=== PATIENT | male | born 1990 | race Caucasian/White ===

== ENCOUNTER → 2020-12-11 | Outpatient (CLI) | payer SELFPAY ==
[~2020-12-11] MED LIST: AMOX500C2 PO; DICY20TA10; HYDR-4226 PO; NAPR-1071 PO; ONDA8TAB13; PREG100C
--- NOTE | 2020-12-11 17:42 | Diagnostic Imaging Report ---
PROCEDURE: CT abdomen and pelvis without contrast. TECHNIQUE: Multiple contiguous axial images were obtained through the abdomen and pelvis without the use of intravenous contrast. Auto Exposure Controls were utilized during the CT exam to meet ALARA standards for radiation dose reduction. INDICATION: Left lower quadrant abdominal pain for 3 days. History of diverticulitis. COMPARISON: None. FINDINGS: The heart is unremarkable. The included lung bases are clear. A nonobstructing calculus is seen in the inferior pole of the right kidney measuring 4 mm. No obstructing calculi or hydronephrosis. The urinary bladder is nondistended. No bladder calculus is seen. The liver, spleen, pancreas and adrenal glands have a normal appearance. There is no pathologically enlarged mesenteric or retroperitoneal adenopathy. Diverticuli are visualized in the descending and sigmoid colon. Pericolonic inflammatory changes are seen along the descending and sigmoid colon. No evidence of abscess formation or free air. Trace free fluid is seen in the left paracolic gutter. Normal appendix is seen in the right lower quadrant. No evidence of bowel obstruction. No acute osseous abnormality. There is no free air, loculated collection or adenopathy in the pelvis. IMPRESSION: 1. Acute uncomplicated diverticulitis involving the descending and sigmoid colon. 2. Nonobstructing calculus in the inferior pole of the right kidney measuring 4 mm. Dictated by: Dictated on workstation # [id number]
== END ==
LOC: RAD FS 17:11
PROVIDERS: ATTEND Nurse Practitioner Family
DX: K57.32 Diverticulitis of large intestine without perforation or abscess without bleeding (principal); N20.0 Calculus of kidney
CPT/HCPCS: 74176

== ENCOUNTER → 2020-12-11 | Outpatient (CLI) | payer SELFPAY ==
--- NOTE | 2020-12-11 10:37 | Diagnostic Imaging Report ---
EXAMINATION: Abdomen at 10:07 a.m. INDICATION: Abdominal pain. There are no prior studies available for comparison. Two supine views were obtained. There is gas in both the large and small bowel in a nonspecific fashion. There is no evidence for bowel obstruction. There is no mass or organomegaly appreciated. However there is a 4 mL calcification overlying the inferior pole of the right kidney. I suspect that this is an intrarenal calculus. There is also a small 3 mm calculus near the ureterovesical junction on the left. This could represent a phlebolith. The possibility that this is an obstructive calculus within the left collecting system should also be considered. If further imaging is desired, then CT of the abdomen and pelvis would be recommended. The osseous structures are intact. IMPRESSION: 1. The bowel gas pattern is nonspecific. There is no evidence for bowel obstruction. 2. The calcific density overlying the right kidney may well be intrarenal. The calcific density low in the pelvis near the ureterovesical junction on the left is of uncertain etiology. Considerations and recommendations as above. Dictated by: Dictated on workstation # [id number]
== END ==
LOC: LAB FS 09:59
PROVIDERS: ATTEND Nurse Practitioner Family
DX: K57.30 Diverticulosis of large intestine without perforation or abscess without bleeding (principal); N28.89 Other specified disorders of kidney and ureter; N20.1 Calculus of ureter
CPT/HCPCS: 74018

== ENCOUNTER 2021-04-23 10:40 | Emergency (ER) | payer SELFPAY ==
[~2021-04-23] VITALS: Ht 152 cm; Wt 87.0 kg
[2021-04-23 10:45] VITALS: BP 157/102
--- NOTE | 2021-04-23 10:53 | ED GI ---
General Chief Complaint: - Urinary Stated Complaint: RT ABD PAIN History of Present Illness Date Seen by Provider: Apr 23, 2021 Time Seen by Provider: 10:49 Initial Comments 30-year-old presents with sudden onset right flank and abdominal pain 30 minutes prior to arrival today. Associated nausea vomiting. History of kidney stones. Also blood in his urine. No recent illness, fever or chills. Allergies and Home Medications Allergies Coded Allergies: Penicillins (Verified Allergy, Unknown, 09/08/16) Home Medications Amoxicillin 500 Mg Capsule, 500 MG PO TID Prescribed by: HELDER HOLDEN on 09/08/16 165 Cephalexin 500 Mg Tablet, 500 MG PO TID Prescribed by: ROSALINO PRADO on 04/23/21 1141 Hydrocodone/Acetaminophen 1 Each Tablet, 1 EACH PO Q4H PRN for PAIN Prescribed by: HELDER HOLDEN on 09/08/161657 Naproxen 500 Mg Tablet, 500 MG PO BID PRN for PAIN Prescribed by: HELDER HOLDEN on 09/08/161657 Tamsulosin HCl 0.4 Mg Cap, 0.4 MG PO DAILY Prescribed by: ROSALINO PRADO on 04/23/21 1141 Patient Home Medication List Home Medication List Reviewed: Yes Review of Systems Review of Systems Constitutional: No fever, No malaise, No weakness Gastrointestinal: Abdominal Pain (RLLQ); Denies Constipated, Denies Diarrhea; Nausea; Denies Vomiting Genitourinary: Denies Burning, Denies Discharge, Denies Drainage, Denies Frequency; Flank Pain, Hematuria, Pain Musculoskeletal: No back pain, No joint pain, No muscle pain Skin: No change in color, No rash Past Ytqxkkt-Vjgygd-Iujjdw Hx Past Med/Social Hx: Reviewed Nursing Past Med/Soc Hx Patient Social History Recent Hopitalizations: No Past Medical History Irritable Bowel Depression Physical Exam Vital Signs Vital Signs - First Documented 04/23/21 10:45 Temp 36.3 Pulse 62 Resp 18 B/P (MAP) 157/102 (120) Pulse Ox 99 O2 Delivery Room Air Capillary Refill : Height/Weight/BMI Height: 5'4" Weight: 180lbs. oz. 81.355266mk; BMI Method:Stated General Appearance: WD/WN, no apparent distress Respiratory: chest non-tender, lungs clear Cardiovascular: regular rate, rhythm, no JVD Gastrointestinal: non tender, soft, no organomegaly, no pulsatile mass; No guarding, No rebound; tenderness (RLQ and R flank) Back: normal inspection, no CVA tenderness Progress/Results/Core Measures Results/Orders Lab Results Laboratory Tests Test 04/23/21 10:53 Range/Units White Blood Count 8.6 4.3-11.0 10^3/uL Red Blood Count 5.23 4.35-5.85 10^6/uL Hemoglobin 16.3 13.3-17.7 G/DL Hematocrit 47 40-54 % Mean Corpuscular Volume 91 80-99 FL Mean Corpuscular Hemoglobin 31 25-34 PG Mean Corpuscular Hemoglobin Concent 34 32-36 G/DL Red Cell Distribution Width 12.7 10.0-14.5 % Platelet Count 239 130-400 10^3/uL Mean Platelet Volume 10.7 H 7.4-10.4 FL Immature Granulocyte % (Auto) 0 % Neutrophils (%) (Auto) 57 42-75 % Lymphocytes (%) (Auto) 32 12-44 % Monocytes (%) (Auto) 7 0-12 % Eosinophils (%) (Auto) 4 0-10 % Basophils (%) (Auto) 0 0-10 % Neutrophils # (Auto) 4.9 1.8-7.8 X 10^3 Lymphocytes # (Auto) 2.8 1.0-4.0 X 10^3 Monocytes # (Auto) 0.6 0.0-1.0 X 10^3 Eosinophils # (Auto) 0.3 0.0-0.3 10^3/uL Basophils # (Auto) 0.0 0.0-0.1 10^3/uL Immature Granulocyte # (Auto) 0.0 0.0-0.1 10^3/uL Sodium Level 139 135-145 MMOL/L Potassium Level 3.9 3.6-5.0 MMOL/L Chloride Level 106 98-107 MMOL/L Carbon Dioxide Level 23 21-32 MMOL/L Anion Gap 10 5-14 MMOL/L Blood Urea Nitrogen 12 7-18 MG/DL Creatinine 0.94 0.60-1.30 MG/DL Estimat Glomerular Filtration Rate > 60 BUN/Creatinine Ratio 13 Glucose Level 104 70-105 MG/DL Calcium Level 9.7 8.5-10.1 MG/DL Corrected Calcium 8.5-10.1 MG/DL Total Bilirubin 0.4 0.1-1.0 MG/DL Aspartate Amino Transf (AST/SGOT) 17 5-34 U/L Alanine Aminotransferase (ALT/SGPT) 13 0-55 U/L Alkaline Phosphatase 73 40-136 U/L Total Protein 7.9 6.4-8.2 GM/DL Albumin 5.0 H 3.2-4.5 GM/DL My Orders Orders - ROSALINO PRADO DO Cbc With Automated Diff (04/23/21 10:53) Comprehensive Metabolic Panel (04/23/21 10:53) Ed Iv/Invasive Line Start (04/23/21 10:53) Ns Iv 1000 Ml (Sodium Chloride 0.9%) (04/23/21 11:00) Ketorolac Injection (Toradol Injection) (04/23/21 11:00) Ct Abdomen/Pelvis Wo (04/23/21 11:00) Ondansetron Injection (Zofran Injectio (04/23/21 11:15) Ondansetron Injection (Zofran Injectio (04/23/21 11:15) Medications Given in ED Current Medications Medications Dose Ordered Sig/Miracle Route Start Time Stop Time Status Last Admin Dose Admin Ketorolac Tromethamine 30 mg ONCE ONCE IVP 04/23/21 11:00 04/23/21 11:01 DC 04/23/21 10:59 30 MG Ondansetron HCl 4 mg ONCE ONCE IVP 04/23/21 11:15 04/23/21 11:16 DC 04/23/21 11:10 4 MG Vital Signs/I&O 04/23/21 10:45 Temp 36.3 Pulse 62 Resp 18 B/P (MAP) 157/102 (120) Pulse Ox 99 O2 Delivery Room Air Progress Progress Note : Progress Note patient did not want any narcotic pain medication, although it was offered. Diagnostic Imaging Comments MPRESSION: 1. A 4 mm proximal right ureteric calculus producing moderate hydroureteronephrosis. There is a tiny nonobstructing left renal calculus. 2. Uncomplicated diverticulosis. Dictated on workstation # [id number] Dict: 04/23/21 1114 Trans: 04/23/21 1120 [facility] [id number] Interpreted by: AKASH LANE MD Electronically signed by: Departure Impression Primary Impression: Ureterolithiasis Disposition: HOME, SELF-CARE Condition: Improved Departure-Patient Inst. Decision time for Depature: 11:39 Referrals: SUNIL CHUN APRN (PCP) Primary Care Physician [facility] [place] Primary Care Physician REI SHAH MD Patient Instructions: Kidney Stone, Adult ED, How to Strain Your Urine Add. Discharge Instructions: Call Dr Shah's office to schedule a follow up appointment in 1-2 days if your are not relieved from your pain (passed the stone) All discharge instructions reviewed with patient and/or family. Voiced understanding. Scripts Tamsulosin HCl (Flomax) 0.4 Mg Cap 0.4 MG PO DAILY, #5 CAP Prov: ROSALINO PRADO DO 04/23/21 Cephalexin (Cephalexin) 500 Mg Tablet 500 MG PO TID, #15 TAB Prov: ROSALINO PRADO DO 04/23/21 ROSALINO PRADO DO Apr 23, 2021 10:53
[2021-04-23] MEDS ORDERED: NS IV 1000 ML 1,000 ML IV SCH (11:00)
[2021-04-23] MEDS ORDERED: KETOROLAC 30 MG/ML VIAL IVP ONE (11:00)
[2021-04-23 11:01] LABS: BASOPHILS % (AUTO) 0 % (0-10); EOSINOPHILS % (AUTO) 4 % (0-10); HEMATOCRIT 47 % (40-54); HEMOGLOBIN 16.3 G/DL (13.3-17.7); LYMPHOCYTES % (AUTO) 32 % (12-44); MEAN CORPUSCULAR HEMOGLOBIN 31 PG (25-34); MEAN CORPUSCULAR HGB CONC 34 G/DL (32-36); MEAN CORPUSCULAR VOLUME 91 FL (80-99); MEAN PLATELET VOLUME 10.7 FL (7.4-10.4); MONOCYTES % (AUTO) 7 % (0-12); NEUTROPHILS % (AUTO) 57 % (42-75); PLATELET COUNT 239 10^3/uL (130-400); WHITE BLOOD COUNT 8.6 10^3/uL (4.3-11.0)
[2021-04-23 11:02] LABS: EOSINOPHILS # (AUTO) 0.3 10^3/uL (0.0-0.3); LYMPHOCYTES # (AUTO) 2.8 X 10^3 (1.0-4.0); MONOCYTES # (AUTO) 0.6 X 10^3 (0.0-1.0); NEUTROPHILS # (AUTO) 4.9 X 10^3 (1.8-7.8)
[2021-04-23] MEDS ORDERED: ONDANSETRON 4 MG/2 ML (SDV) Z0FRAN IVP ONE ×2 (11:15)
--- NOTE | 2021-04-23 11:21 | Diagnostic Imaging Report ---
PROCEDURE: CT abdomen and pelvis without contrast. TECHNIQUE: Multiple contiguous axial images were obtained through the abdomen and pelvis without the use of intravenous contrast. Auto Exposure Controls were utilized during the CT exam to meet ALARA standards for radiation dose reduction. INDICATION: Sudden onset of right lower quadrant abdominal pain and hematuria. CORRELATION is made with prior CT from 12/11/2020. The lung bases are clear. The liver and gallbladder are unremarkable. There is no biliary ductal dilatation. The pancreas and spleen are unremarkable. No adrenal mass is detected. A tiny nonobstructing calculus upper pole left kidney is noted. There is a stone in the proximal right ureter measuring approximately 4 mm in size. This does produce moderate hydroureteronephrosis. No other ureteral calculi are seen. The bladder is decompressed. No bladder calculi are identified. Aorta is nonaneurysmal. The small and large bowel loops are normal caliber. Appendix is unremarkable. There is no obstruction. There is diverticulosis involving the descending and sigmoid colon but no evidence of acute diverticulitis. There is no free fluid or fluid collection. IMPRESSION: 1. A 4 mm proximal right ureteric calculus producing moderate hydroureteronephrosis. There is a tiny nonobstructing left renal calculus. 2. Uncomplicated diverticulosis. Dictated by: Dictated on workstation # [id number]
[2021-04-23 11:22] LABS: BUN/CREATININE RATIO 13; CARBON DIOXIDE 23 MMOL/L (21-32); CHLORIDE 106 MMOL/L (98-107); CREATININE SERUM 0.94 MG/DL (0.60-1.30); GFR ESTIMATED > 60; POTASSIUM 3.9 MMOL/L (3.6-5.0); SODIUM 139 MMOL/L (135-145)
[2021-04-23 11:23] LABS: ALANINE AMINOTRANSFERASE 13 U/L (0-55); ALKALINE PHOSPHATASE 73 U/L (40-136); BILIRUBIN,TOTAL 0.4 MG/DL (0.1-1.0); CALCIUM 9.7 MG/DL (8.5-10.1); GLUCOSE 104 MG/DL (70-105); TOTAL PROTEIN 7.9 GM/DL (6.4-8.2)
[2021-04-23] MEDS ORDERED: TMSL.4C PO (11:41)
[2021-04-23] MEDS ORDERED: CEPH500T PO (11:41)
== END 2021-04-23 11:46 | disposition home or self-care (01) ==
LOC: EDUNIT# 10:40 → ER FS 10:41
DX: N13.2 Hydronephrosis with renal and ureteral calculous obstruction (principal)
CPT/HCPCS: 36415; 74176; 80053; 85025

== ENCOUNTER 2021-05-22 10:15 | Emergency (ER) | payer SELFPAY ==
[~2021-05-22 10:15] MED LIST changes: +CEPH500T PO; +TMSL.4C PO
[2021-05-22 10:34] LABS: CLARITY,URINE CLOUDY; COLOR,URINE DARK YELLOW
[2021-05-22 10:38] LABS: BILIRUBIN,URINE 1+ (NEGATIVE); GLUCOSE, URINE (UA) NEGATIVE (NEGATIVE); KETONES,URINE NEGATIVE (NEGATIVE); LEUKOCYTE ESTERASE ,URINE TRACE (NEGATIVE); NITRITE,URINE NEGATIVE (NEGATIVE); PROTEIN,URINE TRACE (NEGATIVE); RBC,URINE TNTC /HPF
[2021-05-22 10:45] LABS: BASOPHILS % (AUTO) 1 % (0-10); EOSINOPHILS # (AUTO) 0.4 10^3/uL (0.0-0.3); EOSINOPHILS % (AUTO) 7 % (0-10); HEMATOCRIT 47 % (40-54); LYMPHOCYTES # (AUTO) 1.9 X 10^3 (1.0-4.0); LYMPHOCYTES % (AUTO) 32 % (12-44); MEAN CORPUSCULAR HEMOGLOBIN 31 PG (25-34); MEAN CORPUSCULAR HGB CONC 34 G/DL (32-36); MEAN CORPUSCULAR VOLUME 91 FL (80-99); MEAN PLATELET VOLUME 10.6 FL (7.4-10.4); MONOCYTES # (AUTO) 0.4 X 10^3 (0.0-1.0); MONOCYTES % (AUTO) 7 % (0-12); NEUTROPHILS # (AUTO) 3.2 X 10^3 (1.8-7.8); NEUTROPHILS % (AUTO) 53 % (42-75); PLATELET COUNT 207 10^3/uL (130-400)
[2021-05-22] MEDS ORDERED: KETOROLAC 30 MG/ML VIAL IVP ONE (10:45)
[2021-05-22] MEDS ORDERED: NS IV 1000 ML 1,000 ML IV SCH (10:45)
[2021-05-22] MEDS ORDERED: ONDANSETRON 4 MG/2 ML (SDV) Z0FRAN IVP ONE (10:45)
--- NOTE | 2021-05-22 10:57 | ED Abdominal Pain ---
General Chief Complaint: Abdominal/GI Problems Stated Complaint: LEFT SIDE ABD PAIN | BLOOD IN URINE | VOMITING Nursing Triage Note: Has hx of kidney stones and is having left sided abdominal pain. Pain is rated at 8/10. Pain woke him up from sleep approx 15 minutes ago. Vomited x 1 due to pain. Took two ibuprofen prior to arrival. Has been treated for diverticulitis 3 times, last time in December. Is seeing a machine design engineer due to frequent diverticulitis. Is having colonoscopy done at in August. Source of Information: Patient Exam Limitations: No Limitations History of Present Illness Date Seen by Provider: May 22, 2021 Time Seen by Provider: 10:20 Initial Comments Patient is a 30-year-old biological female who has completed transition to phenotypic male who presents who presents with left sided flank pain acute onset starting 15 minutes prior to arrival waking him from sleep. Pain was dull, moderate to severe and radiating. Patient also reports blood in urine. Upon arrival in the ER, the patient was able to process what appears to be a small kidney stone and a urine cup. Symptoms started to improve. Patient did take ibuprofen prior to ED arrival. No nausea vomiting, fever chills or sweats. Patient has history of diverticulitis and C. difficile . He has been off antibiotics for the past 2 months but reports daily diarrhea. Denies dizziness lightheadedness. No other acute symptoms or complaints. Timing/Duration: 1/2 Hour Severity/Quality: Moderate, Dull Location: LLQ Radiation: No Radiation Activities at Onset: None Modifying Factors: Improves With Analgesics Allergies and Home Medications Allergies Coded Allergies: Penicillins (Verified Allergy, Unknown, 09/08/16) Home Medications Amoxicillin 500 Mg Capsule, 500 MG PO TID Prescribed by: HELDER HOLDEN on 09/08/161657 Cephalexin 500 Mg Tablet, 500 MG PO TID Prescribed by: ROSALINO PRADO on 04/23/21 1141 Hydrocodone/Acetaminophen 1 Each Tablet, 1 EACH PO Q4H PRN for PAIN Prescribed by: HELDER HOLDEN on 09/08/161657 Naproxen 500 Mg Tablet, 500 MG PO BID PRN for PAIN Prescribed by: HELDER HOLDEN on 09/08/161657 Tamsulosin HCl 0.4 Mg Cap, 0.4 MG PO DAILY Prescribed by: ROSALINO PRADO on 04/23/21 1141 Patient Home Medication List Home Medication List Reviewed: Yes Review of Systems Review of Systems Constitutional: see HPI EENTM: See HPI Respiratory: See HPI Cardiovascular: See HPI Gastrointestinal: See HPI Genitourinary: See HPI Musculoskeletal: see HPI Skin: see HPI Psychiatric/Neurological: See HPI Endocrine: See HPI Hematologic/Lymphatic: See HPI All Other Systems Reviewed Negative Unless Noted: Yes Past Pbcosxj-Zbleru-Qjjugx Hx Patient Social History Tobacco Use?: Yes Substance use?: Yes Substance type: Marijuana Pt feels they are or have been: No Immunizations Up To Date First/Initial COVID19 Vaccinat: 03/19 Second COVID19 Vaccination Eliezer: 04/19 Past Medical History Surgeries: No Respiratory: No Cardiac: No Neurological: No Gastrointestinal: Yes Irritable Bowel Musculoskeletal: No Endocrine: No Cancer: No Psychosocial: Yes Depression Physical Exam Vital Signs Vital Signs - First Documented 05/22/21 10:22 Temp 36.0 Pulse 74 Resp 16 B/P (MAP) 151/108 (122) Pulse Ox 96 Capillary Refill : Less Than 3 Seconds Height/Weight/BMI Height: 5'4" Weight: 180lbs. oz. 81.457227fv; 37.00 BMI Method:Stated General Appearance: WD/WN, no apparent distress HEENT: PERRL/EOMI, normal ENT inspection Neck: full range of motion Respiratory: chest non-tender, lungs clear, normal breath sounds Gastrointestinal: non tender, soft Neurologic/Psychiatric: no motor/sensory deficits, alert, oriented x 3 Skin: normal color Focused Exam Sepsis Stage: Ruled Out Progress/Results/Core Measures Results/Orders Lab Results Laboratory Tests Test 05/22/21 10:22 05/22/21 10:35 Range/Units Urine Color DARK YELLOW Urine Clarity CLOUDY Urine pH 6.0 5-9 Urine Specific [place] >=1.030 1.016-1.022 Urine Protein TRACE H NEGATIVE Urine Glucose (UA) NEGATIVE NEGATIVE Urine Ketones NEGATIVE NEGATIVE Urine Nitrite NEGATIVE NEGATIVE Urine Bilirubin 1+ H NEGATIVE Urine Urobilinogen 0.2 < = 1.0 MG/DL Urine Leukocyte Esterase TRACE H NEGATIVE Urine RBC (Auto) 3+ H NEGATIVE Urine RBC TNTC H /HPF Urine WBC /HPF Urine Crystals NONE /LPF Urine Bacteria /HPF Urine Casts NONE /LPF Urine Mucus NEGATIVE /LPF Urine Culture Indicated YES White Blood Count 6.0 4.3-11.0 10^3/uL Red Blood Count 5.18 4.35-5.85 10^6/uL Hemoglobin 16.0 13.3-17.7 G/DL Hematocrit 47 40-54 % Mean Corpuscular Volume 91 80-99 FL Mean Corpuscular Hemoglobin 31 25-34 PG Mean Corpuscular Hemoglobin Concent 34 32-36 G/DL Red Cell Distribution Width 12.7 10.0-14.5 % Platelet Count 207 130-400 10^3/uL Mean Platelet Volume 10.6 H 7.4-10.4 FL Immature Granulocyte % (Auto) 0 % Neutrophils (%) (Auto) 53 42-75 % Lymphocytes (%) (Auto) 32 12-44 % Monocytes (%) (Auto) 7 0-12 % Eosinophils (%) (Auto) 7 0-10 % Basophils (%) (Auto) 1 0-10 % Neutrophils # (Auto) 3.2 1.8-7.8 X 10^3 Lymphocytes # (Auto) 1.9 1.0-4.0 X 10^3 Monocytes # (Auto) 0.4 0.0-1.0 X 10^3 Eosinophils # (Auto) 0.4 H 0.0-0.3 10^3/uL Basophils # (Auto) 0.0 0.0-0.1 10^3/uL Sodium Level 139 135-145 MMOL/L Potassium Level 3.9 3.6-5.0 MMOL/L Chloride Level 105 98-107 MMOL/L Carbon Dioxide Level 23 21-32 MMOL/L Anion Gap 11 5-14 MMOL/L Blood Urea Nitrogen 13 7-18 MG/DL Creatinine 0.88 0.60-1.30 MG/DL Estimat Glomerular Filtration Rate 101 BUN/Creatinine Ratio 15 Glucose Level 98 70-105 MG/DL Calcium Level 9.3 8.5-10.1 MG/DL My Orders Orders - LUH PRESTON DO Urinalysis (05/22/21 10:25) Urine Culture (05/22/21 10:22) Cbc With Automated Diff (05/22/21 10:41) Basic Metabolic Panel (05/22/21 10:41) Ns Iv 1000 Ml (Sodium Chloride 0.9%) (05/22/21 10:45) Ondansetron Injection (Zofran Injectio (05/22/21 10:45) Ketorolac Injection (Toradol Injection) (05/22/21 10:45) Morphine Injection (Morphine Injection (05/22/21 11:29) Medications Given in ED Current Medications Medications Dose Ordered Sig/Miracle Route Start Time Stop Time Status Last Admin Dose Admin Ketorolac Tromethamine 30 mg ONCE ONCE IVP 05/22/21 10:45 05/22/21 10:46 DC 05/22/21 10:51 30 MG Ondansetron HCl 4 mg ONCE ONCE IVP 05/22/21 10:45 05/22/21 10:46 DC 05/22/21 10:52 4 MG Vital Signs/I&O 05/22/21 10:22 Temp 36.0 Pulse 74 Resp 16 B/P (MAP) 151/108 (122) Pulse Ox 96 Blood Pressure Mean: 122 Departure Communication (Admissions) Patient with kidney stone with decreased blood cell in urine sample. Toradol, morphine given with resolution of symptoms. Recommend supportive care with urology follow-up as scheduled.. Return cautions reviewed. Patient verbalizes understanding agreement discharge instructions prior to departure. Impression Primary Impression: Left flank pain Additional Impression: Kidney stone Disposition: HOME, SELF-CARE Condition: Stable Departure-Patient Inst. Decision time for Depature: 11:32 Referrals: SUNIL CHUN APRN (PCP) Primary Care Physician [facility] (Family) Primary Care Physician Patient Instructions: Kidney Stone, Adult ED Add. Discharge Instructions: Please go home and rest. Increase fluids and strain urine for passage of possible additional kidney stones. Take Flomax, ibuprofen and Zofran as needed. Follow-up with your urologist as scheduled. Return to the ED if new or worsening symptoms. All discharge instructions reviewed with patient and/or family. Voiced understanding. Scripts Ondansetron (Ondansetron Odt) 4 Mg Tab.rapdis 4 MG PO DAILY, #10 TAB Prov: LUH PRESTON DO 05/22/21 Tamsulosin HCl (Flomax) 0.4 Mg Cap 0.4 MG PO DAILY, #10 CAP Prov: LUH PRESTON DO 05/22/21 LUH PRESTON DO May 22, 2021 10:57
[2021-05-22 11:03] LABS: CALCIUM 9.3 MG/DL (8.5-10.1); CREATININE SERUM 0.88 MG/DL (0.60-1.30); POTASSIUM 3.9 MMOL/L (3.6-5.0)
[2021-05-22] MEDS ORDERED: morphine INJ 10 MG/ML 1ML (SYR OR VIAL) IVP STA (11:29)
[2021-05-22] MEDS ORDERED: TMSL.4C PO (11:34)
[2021-05-22] MEDS ORDERED: ONDA4TAB11 PO (11:34)
[2021-05-22 11:57] VITALS: BP 144/98
== END 2021-05-22 12:00 | disposition home or self-care (01) ==
LOC: EDUNIT# 10:15 → ER FS 10:17
DX: N20.0 Calculus of kidney (principal)
CPT/HCPCS: 36415; 80048; 81000; 85025; 87088